=== PATIENT | male | born 2000 | race Caucasian/White ===

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

== ENCOUNTER 2020-11-30 20:10 | Emergency (ER) | payer BC ==
[~2020-11-30] VITALS: Ht 180.3 cm; Wt 88.6 kg
[~2020-11-30 20:10] MED LIST changes: +FLEXERIL 1010 MG/TAB PO
[2020-11-30 20:26] VITALS: BP 132/89; TEMP 98
[2020-11-30] MEDS ORDERED: BACTRIM DS 8001 TAB PO (21:25)
[2020-11-30 21:34] VITALS: PULSE 71
== END 2020-11-30 21:34 | disposition home or self-care (01) ==
LOC: COL.ER
DX: L60.0 Ingrowing nail (principal); Z98.890 Other specified postprocedural states